=== PATIENT | female | born 1980 | race Caucasian/White ===

== ENCOUNTER → 2018-11-28 08:48 | Outpatient (CLI) | payer OTHER, SELFPAY ==
--- NOTE | 2018-11-28 | DI.MG.S_ITS ---
UNILATERAL LEFT DIGITAL DIAGNOSTIC MAMMOGRAM 3D/2D WITH ADDITIONAL VIEWS WITH AUGMENTATION: 11/28/2018 CLINICAL: Additional evaluation requested from prior study. Comparison is made to exams dated: 08/18/2018 mammogram - [facility] and 11/29/2015 mammogram - [facility]. The tissue of left breast is extremely dense, which lowers the sensitivity of mammography. There are benign appearing calcifications in the left breast. No significant masses, calcifications, or other findings are seen in the breast. Previously noted MLO view asymmetry is not appreciated on today's study and may have been related to physiologic changes of recent preganancy and early lactational changes. IMPRESSION: There is no abnormality seen in the left breast to correspond with the mammography finding which likely represented normal fibroglandular tissue. Recommend clinical follow up for development of any symptoms or palpable concerns. There is no mammographic evidence of malignancy. A 2 year screening mammogram is recommended (age 40). This exam was interpreted at Station ID: [id number]. NOTE: For mammograms, a report in lay terms will be sent to the patient. Approximately 15% of breast malignancies will not be visualized mammographically. In the management of a palpable breast mass, a negative mammogram must not discourage biopsy of a clinically suspicious lesion. Electronically Signed By: Christofer Perry M.D. aty/:11/28/2018 09:58:54 letter sent: Normal Exam ACR BI-RADS Category 2: Benign Finding(s) 3342F
== END ==
PROVIDERS: Visit Provider Nurse Practitioner Family
DX: R92.8 Other abnormal and inconclusive findings on diagnostic imaging of breast (principal)
CPT/HCPCS: 77065; G0279

== ENCOUNTER → 2019-10-26 14:30 | Outpatient (CLI) | payer OTHER, MEDICAID, SELFPAY ==
[2019-10-26 15:07] LABS: Add Manual Diff / Slide Review NO; Basophils Absolute Auto 0 /uL (0-100); Basophils Percent Auto 0.5 % (0-2); Eosinophils Absolute Auto 400 /uL (0-450); Eosinophils Percent Auto 7.5 % (2-4); Hematocrit 37.7 % (36-46); Hemoglobin 12.4 g/dL (12.0-16.0); Lymphocytes Absolute Auto 1300 /uL (1100-4500); Lymphocytes Percent Auto 21.4 % (25-40); Mean Corpuscular Hemoglobin 29.4 PG (26-34); Mean Corpuscular Volume 88.9 fL (80-100); Monocytes Absolute Auto 500 /uL (0-900); Monocytes Percent Auto 8.2 % (3-14); Neutrophils Absolute Auto 3700 /uL (1500-7000); Neutrophils Percent Auto 62.4 % (50-75); Platelet Count 183 X10^3/uL (150-400); Red Blood Cell Count 4.24 X10^6/uL (4.0-5.2); Red Cell Distribution Width 13.1 % (11.6-14.8); White Blood Cell Count 5.9 X10^3/uL (4.5-11.0)
[2019-10-26 15:11] LABS: Appearance Urine UA CLEAR; Bilirubin Urine UA NEGATIVE (NEGATIVE); Color Urine UA YELLOW; Glucose Urine UA NEGATIVE (Negative); Ketones Urine UA TRACE (NEGATIVE); Leukocyte Esterase Urine UA NEGATIVE (NEGATIVE); Nitrite Urine UA NEGATIVE (Negative); Occult Blood Urine UA TRACE-LYSED (Negative); Protein Urine UA NEGATIVE (Negative); Specific Gravity Urine UA >=1.030 (1.000-1.035); Urobilinogen Urine UA 0.2 E.U./dL (0.2)
[2019-10-26 15:16] LABS: pH Urine UA 5.5 (4.5-8.0)
[2019-10-26 16:05] LABS: Free T4, Direct Thyroxine 1.05 ng/dL (0.78-2.19)
[2019-10-26 16:19] LABS: Thyroid Stimulating Hormone 0.891 uIU/mL (0.47-4.68)
[2019-10-26 16:49] LABS: HIV 1 & 2 Ab/Ag 4th Gen Combo NEGATIVE (NEGATIVE); Hepatitis B Surface Antigen NEGATIVE s/c (NEGATIVE)
[2019-10-27 05:11] LABS: RPR Screen Non Reactive (Non Reactive)
[2019-10-27 06:36] LABS: Thyroid Peroxidase Antibodies 294 IU/mL (0-34)
[2019-10-27 08:34] LABS: Varicella IgG Antibody 2322 index (Immune >165)
== END ==
PROVIDERS: PCP Specialist; Referring Provider Specialist; Visit Provider Specialist
DX: Z34.81 Encounter for supervision of other normal pregnancy, first trimester (principal); E06.3 Autoimmune thyroiditis
CPT/HCPCS: 36415; 80055; 81003; 84439; 84443; 86376; 86787; 86850; 86900; 86901; 87086; 87389

== ENCOUNTER → 2019-12-01 16:12 | Outpatient (CLI) | payer OTHER, MEDICAID, SELFPAY | PROVIDERS: PCP Specialist; Referring Provider Specialist; Visit Provider Specialist | DX: O09.521 Supervision of elderly multigravida, first trimester (principal); Z3A.12 12 weeks gestation of pregnancy | CPT/HCPCS: 36415; 81420 ==

== ENCOUNTER → 2019-12-21 10:51 | Outpatient (CLI) | payer OTHER, MEDICAID, SELFPAY ==
[2019-12-21 13:14] LABS: Free T4, Direct Thyroxine 0.99 ng/dL (0.78-2.19)
[2019-12-21 13:28] LABS: Thyroid Stimulating Hormone 0.996 uIU/mL (0.47-4.68)
== END ==
PROVIDERS: PCP Specialist; Referring Provider Specialist; Visit Provider Specialist
DX: E06.3 Autoimmune thyroiditis (principal); Z34.90 Encounter for supervision of normal pregnancy, unspecified, unspecified trimester
CPT/HCPCS: 36415; 84439; 84443

== ENCOUNTER → 2020-01-22 10:42 | Outpatient (CLI) | payer OTHER, MEDICAID, SELFPAY ==
[2020-01-24 20:36] LABS: AFP Value 85.9 ng/mL (.); Gest Age on Col Date 19.1 weeks (.); Gestational Age Ultrasound (.); Insulin Dep Diabetes No (.); OSBR Risk 1IN 2270 (.); Results Report (.); Test Results *Screen Negative* (.)
== END ==
PROVIDERS: Referring Provider Specialist; Visit Provider Specialist
DX: Z34.82 Encounter for supervision of other normal pregnancy, second trimester (principal); Z3A.19 19 weeks gestation of pregnancy
CPT/HCPCS: 36415; 82105

== ENCOUNTER → 2020-01-24 15:17 | Outpatient (CLI) | payer OTHER, MEDICAID, SELFPAY ==
--- NOTE | 2020-01-24 15:18 | DI.US.S_ITS ---
PROCEDURE: US OB >= 14 WEEKS FETUS INDICATIONS: 20 week anatomy scan OUTSIDE/PRIOR DATING DATA: Last menstrual period (LMP): 09/06/19. LMP-based estimated date of delivery (MIMI): 06/12/20 . First dating scan (date and location): 10/26/19 . Estimated date of delivery (MIMI) from first dating scan: 06/16/20 . TECHNIQUE: Real-time scanning was performed of the fetus, with image documentation and biometric measurements. Endovaginal scanning: Not needed COMPARISON: [facility], , OB >= 14 WEEKS FETUS, 11/22/2019, 16:16. FINDINGS: General: A single living intrauterine gestation is present. Presentation: Transverse, head maternal left. Placenta: Placental position is posterior , without previa. Amniotic fluid index: 15.6 cm, normal range is 5-24 cm. heart rate: 165 beats per minute. Maternal cervical canal: 4.0 cm long. Normal lower limit is 2.5 cm. biometrics: Biparietal diameter: 4.3 cm, 19 weeks 0 days Head circumference: 16.6 cm, 19 weeks 2 days Abdominal circumference: 14.1 cm, 19 weeks 3 days Femur length: 3.1 cm, 19 weeks 3 days Estimated gestational age from initial scan: 19 weeks 3 days Composite gestational age from present scan: 19 weeks 2 days Estimated weight and percentile: 292 g, 45th percentile Measurement variability for biometric dating: +/- 7 days from 14 weeks to 15 weeks 6 days gestation, +/- 10 days from 16 weeks to 21 weeks 6 days gestation, +/- 2 weeks from 22 weeks to 27 weeks 6 days gestation, +/- 3 weeks for 28 weeks gestation or later. weight reference: 4500 g or EFW >90/95% is considered macrosomia or large for gestational age. EFW <10% is small for gestational age. EFW 5% or less is considered intra-uterine growth restriction. Anatomic survey: Neuro: Ventricles are non-dilated at less than 10 mm. Cisterna magna is normal at 3-11 mm. Cerebellum is normal in size and morphology. Nuchal skin fold: Normal at less than 6 mm between 14-21 weeks gestational age. Face: Nose and lips, facial profile are normal. Spine: No evidence for spina bifida. Heart: 4-chambered heart is present, with normal ventricular outflow tracts. Diaphragm: Diaphragm is intact. Stomach: Left-sided stomach is present. Kidneys: No hydronephrosis. Normal is less than 5 mm in 2nd trimester, less than 7 mm in 3rd trimester. Cord: 3-vessel cord has orthotopic insertion. Bladder: Normal in size. Extremities: All 4 extremities identified. IMPRESSION: Appropriate interval growth, no anomaly seen. Placental tip is above 2.0 cm from the internal os of the cervical canal and therefore is in normal position. Dictated by: Bishop Rick M.D. on 01/26/2020 at 9:26 Approved by: Bishop Rick M.D. on 01/26/2020 at 9:41
== END ==
PROVIDERS: Referring Provider Specialist; Visit Provider Specialist
DX: Z34.82 Encounter for supervision of other normal pregnancy, second trimester (principal); Z3A.19 19 weeks gestation of pregnancy
CPT/HCPCS: 76811

== ENCOUNTER → 2020-03-04 10:14 | Outpatient (CLI) | payer OTHER, MEDICAID, SELFPAY ==
[2020-03-04 13:14] LABS: Hematocrit 32.6 % (36-46)
[2020-03-04 15:15] LABS: GTT (PREG) 1 Hour PP 50gm Dose 139 mg/dL (76-139)
[2020-03-04 15:48] LABS: Thyroid Stimulating Hormone 1.06 uIU/mL (0.47-4.68)
== END ==
PROVIDERS: Referring Provider Specialist; Visit Provider Specialist
DX: Z34.82 Encounter for supervision of other normal pregnancy, second trimester (principal); E03.9 Hypothyroidism, unspecified; Z3A.25 25 weeks gestation of pregnancy
CPT/HCPCS: 36415; 82950; 84439; 84443; 85014; 85018

== ENCOUNTER → 2020-05-06 09:13 | Outpatient (CLI) | payer OTHER, MEDICAID, SELFPAY ==
[2020-05-06 10:43] LABS: Free T4, Direct Thyroxine 0.83 ng/dL (0.78-2.19)
[2020-05-06 10:57] LABS: Thyroid Stimulating Hormone 1.38 uIU/mL (0.47-4.68)
== END ==
PROVIDERS: Referring Provider Obstetrics & Gynecology; Visit Provider Obstetrics & Gynecology
DX: E06.3 Autoimmune thyroiditis (principal)
CPT/HCPCS: 36415; 84439; 84443

== ENCOUNTER → 2020-05-20 09:58 | Outpatient (CLI) | payer OTHER, MEDICAID, SELFPAY ==
[2020-05-21 10:48] LABS: Strep Grp B PCR NEG for Grp B Strep
[2020-05-21 10:57] LABS: Bile Acids 3.4 umol/L (0.0-10.0)
== END ==
PROVIDERS: Referring Provider Obstetrics & Gynecology; Visit Provider Obstetrics & Gynecology
DX: O09.523 Supervision of elderly multigravida, third trimester (principal); E06.3 Autoimmune thyroiditis; L29.9 Pruritus, unspecified; M62.08 Separation of muscle (nontraumatic), other site; O34.219 Maternal care for unspecified type scar from previous cesarean delivery; O99.719 Diseases of the skin and subcutaneous tissue complicating pregnancy, unspecified trimester; Z3A.36 36 weeks gestation of pregnancy
CPT/HCPCS: 36415; 82239; 87653

== ENCOUNTER 2020-06-03 09:59 | Outpatient (CLI) | payer OTHER, MEDICAID, SELFPAY | END 2020-06-03 11:10 | disposition home or self-care (01) | LOC: LABOR 10:44 → OB 06-04 07:27 | PROVIDERS: Referring Provider Obstetrics & Gynecology; Visit Provider Obstetrics & Gynecology | DX: O09.523 Supervision of elderly multigravida, third trimester (principal); Z3A.38 38 weeks gestation of pregnancy | CPT/HCPCS: 59025; G0378; G0379 ==

== ENCOUNTER → 2020-06-11 14:17 | Outpatient (CLI) | payer OTHER, MEDICAID, SELFPAY ==
[2020-06-11 14:51] LABS: COVID19 -Nasal RAPID Negative (Negative)
== END ==
PROVIDERS: Visit Provider Obstetrics & Gynecology
DX: Z01.812 Encounter for preprocedural laboratory examination (principal); Z20.822 Contact with and (suspected) exposure to COVID-19
CPT/HCPCS: 87635

== ENCOUNTER 2020-06-13 06:00 | Inpatient (IN) | payer OTHER, MEDICAID, SELFPAY ==
[2020-06-13 06:45] VITALS: BP 103/66
[2020-06-13 07:32] LABS: Add Manual Diff / Slide Review NO; Basophils Absolute Auto 0 /uL (0-100); Basophils Percent Auto 0.3 % (0-2); Eosinophils Absolute Auto 300 /uL (0-450); Eosinophils Percent Auto 4.2 % (2-4); Hematocrit 35.8 % (36-46); Hemoglobin 12.4 g/dL (12.0-16.0); Lymphocytes Absolute Auto 1300 /uL (1100-4500); Lymphocytes Percent Auto 20.3 % (25-40); Mean Corpuscular HGB Conc 34.5 % (30-36); Mean Corpuscular Hemoglobin 30.8 PG (26-34); Mean Corpuscular Volume 89.1 fL (80-100); Monocytes Absolute Auto 600 /uL (0-900); Monocytes Percent Auto 9.9 % (3-14); Neutrophils Absolute Auto 4200 /uL (1500-7000); Neutrophils Percent Auto 65.3 % (50-75); Platelet Count 172 X10^3/uL (150-400); Red Blood Cell Count 4.02 X10^6/uL (4.0-5.2); Red Cell Distribution Width 13.9 % (11.6-14.8); White Blood Cell Count 6.4 X10^3/uL (4.5-11.0)
--- NOTE | 2020-06-13 08:42 | PM.HP.1 ---
History of Present Illness History of Present Illness Date Patient Seen: 06/13/20 Time Patient Seen: 08:42 Chief complaint: INPT Narrative: Patient is a 39-year-old 3 para 1 at 40-,1/7 weeks gestation for a scheduled repeat low-transverse section due to a previous section. The has been uncomplicated. 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 Grandfather Accident Grandmother CVA (cerebral vascular accident) Grandfather CVA (cerebral vascular accident) Hypertension Brother Hypothyroid Social History: household members spouse,children lives independently Yes Tobacco & Substance use: Smoking Status Former smoker alcohol intake former Meds Home Medications and Allergies Home Medications Medication Instructions Recorded Confirmed Type prenat.vits,janet,udh-uhud-pwrru 1 tab PO DAILY 10/24/19 06/13/20 History levothyroxine 50 mcg tablet 50 mcg PO DAILY #30 tab 05/06/20 06/13/20 Rx Allergies Allergy/AdvReac Type Severity Reaction Status Date / Time penicillin G Allergy Mild Rash Verified 06/11/20 14:19 Exam Vital Signs (past 8 hours): - 06/13/20 06:45 Blood Pressure 103/66 Narrative Exam Narrative: Generally: Patient is sitting up in bed, no acute distress Lungs: Clear to auscultation bilaterally Cardiovascular: Regular rate and rhythm Fundal height: 39 cm Abdomen: Well-healed Pfannenstiel scar Extremities: no edema Objective Labs Result Diagrams: 06/13/20 06:30 Labs: Laboratory Results - last 24 hr 06/13/20 06/13/20 06:30 06:30 WBC 6.4 RBC 4.02 Hgb 12.4 Hct 35.8 L MCV 89.1 MCH 30.8 MCHC 34.5 RDW 13.9 Plt Count 172 Neut % (Auto) 65.3 Lymph % (Auto) 20.3 L [place] % (Auto) 9.9 Eos % (Auto) 4.2 H Baso % (Auto) 0.3 Neut # (Auto) 4200 Lymph # (Auto) 1300 [place] # (Auto) 600 Eos # (Auto) 300 Baso # (Auto) 0 Blood Type B Positive Antibody Screen Negative Assessment & Plan Assessment & Plan narrative: Assessment: 39-year-old 3 para 1 with a previous section . Plan: Repeat low-transverse section. Preoperative exam and PAR-Q held in the office. COVID-19 COVID-19 status: Negative Result date/Date tested (Pos, Neg/Pending): 06/12/20 Time Spent With Patient Time with patient: 15-24 minutes
--- NOTE | 2020-06-13 08:45 | PM.PREOP ---
Pre-operative Note COVID-19 COVID-19 status: Negative Result date/Date tested (Pos, Neg/Pending): 06/12/20 Interval Note History & Physical reviewed/Exam performed by Physician: Yes Changes to H&P: No H&P completed within 30 days and has changed as indicated here:: 06/13/20
[2020-06-13] MEDS: CEFAZOLIN 2 GM/100 ML FROZ.PIGGY IV (09:05)
--- NOTE | 2020-06-13 09:26 | SUR.OPER ---
live female at 0917
--- NOTE | 2020-06-13 09:31 | SUR.OPER ---
Supine on Padded OR bed, head on pillow, safety belt at thigh, arms secured on padded arm boards at <90 degrees abduction. Bump under right buttock. Legs uncrossed with pillow under knees, gel pad to heels, tape over blanket to lower legs.
[2020-06-13 10:13] VITALS: BP 102/48; PULSE 78; RESP 16; TEMP 36.7; O2SAT 99
[2020-06-13 10:18] VITALS: BP 110/58; PULSE 75; RESP 14; O2SAT 99
[2020-06-13 10:23] VITALS: BP 109/52; PULSE 70; RESP 14; O2SAT 100
[2020-06-13 10:28] VITALS: BP 115/52; PULSE 71; RESP 100; TEMP 36.1; O2SAT 14
--- NOTE | 2020-06-13 11:32 | P.OP_ITS ---
Operative Date/Time/Diagnoses Date of procedure: 06/13/20 Time of procedure: 11:00 Pre-op diagnosis: Thirty-nine weeks gestation Previous section Desires cord blood collection Post-op diagnosis: same Procedure & Clinicians Procedure: Repeat low-transverse section Cord blood collection Same procedure as scheduled: Yes Indications: Thirty-nine weeks gestation Previous section Desires cord blood collection Surgeon: Mattie Thomas Yes if Unassisted: No Retail Administrative Assistant: Yamini Middleton Reason for Retail Administrative Assistant: The surgical physician assistant was necessary for retraction, cutting of suture, and assistance with delivery of the baby. Anesthesia Type: Spinal (With Duramorph) Operative Notes Findings: Live female infant in the direct occiput posterior presentation Normal tubes and ovaries Normal uterus Closure Type: primary Specimen(s): cord blood and other (Cord blood collection for banking, piece of cord for banking) Intraoperative meds administered: Acetaminophen, Duramorph, Ketorolac and Pitocin Applied: Catheter Estimated Blood Loss (mL): 500 Blood products transfused: none Procedure in detail: The patient was taken to the operating room where she was placed in the seated position. Spinal anesthesia with Duramorph was administered. The patient was then placed in the dorsal supine position with a leftward tilt. She was prepped and draped in the usual sterile fashion. A timeout was performed. After spinal analgesia was found to be adequate, a Pfannenstiel skin incision was made through the previous incision and carried through to the underlying layer fascia. The fascia was nicked in the midline, and the incision extended bilaterally with the Chang scissors. The superior aspect of the fascial incision was grasped with a Ahmet clamps, elevated, and the underlying rectus muscles dissected off sharply and bluntly. Attention was then turned to the inferior aspect of this incision which in a similar fashion was grasped with a Lando clamps, elevated, and the underlying rectus muscles dissected off sharply and bluntly. The rectus muscles were in the midline. The peritoneum was identified, grasped between 2 hemostats, and entered sharply with the Metzenbaum scissors. This incision was extended superiorly and inferiorly with good visualization of the bladder. The bladder blade was inserted. The vesicouterine peritoneum was identified, grasped with the pickup, and entered sharply with the Metzenbaum scissors. This incision was extended bilaterally, and the bladder flap was created digitally. The bladder blade was reinserted. The lower uterine segment was incised in a transverse fashion with the scalpel. Upon entering the amniotic sac there was moderate amount of clear amniotic fluid. The infant's head was delivered with vacuum assistance. The nose and mouth were suctioned with bulb suction. The remainder of the body delivered without difficulty. The cord was double clamped and cut. The was handed off to waiting RN and RT. The cord was cleaned x3 with Betadine. The needle attached to the blood collection bag was placed at the lower edge of the umbilical cord into a vein. Over the course of 5 minutes, 250 cc of blood were collected. A 6 in piece of cord was cleaned and cut and placed into the collection bottle. The placenta was delivered manually. The uterus was cleared of all clots and debris. The uterine incision was repaired with #1 chromic in a running interlocking fashion, and a second layer the same suture was used for an imbricating layer. Hemostasis was achieved. The tubes and ovaries were examined and were found to be normal. The gutters were cleared of all clots and debris. The bladder flap was reapproximated using 2-0 Vicryl in a running fashion. The parietal peritoneum was closed using 2-0 Vicryl in a running fashion. The fascia was reapproximated using 0 Vicryl in a running fashion. The subcutaneous layer was copiously irrigated with warm normal saline. 5 simple interrupted sutures of 3-0 Vicryl were placed to reapproximate the subcutaneous layer. The skin was closed with 4-0 Monocryl in a subcuticular fashion. Steri-Strips were placed. An Aquacel dressing was placed. The uterus was expressed of a small amount of old blood. Sponge, lap, and instrument counts were correct x-2. The patient tolerated the procedure well, and was taken to PACU in stable condition. The surgical physician assistant retracted upon entry into the peritoneal cavity. They incised the contralateral fascia. They assisted with retraction with taking down the fascia off of the underlying rectus muscle. They assisted with fundal pressure on delivery of the . They assisted with retraction on the closure and closed the contralateral fascia. Complications: none Baby 1: Infant Gender: Female Presentation: vertex Position: Occiput Posterior Placental Delivery Description: Spontaneous Cord Vessel Description: 3 Vessels score (1 min): 8 score (5 min): 9 weight: 8 lb 14 oz Post-operative Condition: stable Disposition: PACU Aftercare: ICU
[2020-06-13] MEDS: KETOROLAC 30 MG/ML VIAL IV ×2 (15:55→21:52)
[2020-06-13] MEDS: SIMETHICONE 80 MG TABLET PO (16:14)
[2020-06-13] MEDS: OXYCODONE IR 5 MG TABLET PO (20:05)
[2020-06-13] MEDS: ACETAMINOPHEN 325 MG TABLET 650 MG PO (20:05)
[2020-06-13] MEDS: MAG HYDROX/ALUM/SIMETH 30 ML UDC PO (21:52)
[2020-06-14] MEDS: KETOROLAC 30 MG/ML VIAL IV (03:44)
[2020-06-14] MEDS: ACETAMINOPHEN 325 MG TABLET 650 MG PO ×2 (03:45→09:55)
[2020-06-14] MEDS: LEVOTHYROXINE 25 MCG TABLET 50 MCG PO (06:31)
[2020-06-14 06:47] LABS: Hematocrit 32.4 % (36-46); Hemoglobin 11.2 g/dL (12.0-16.0)
[2020-06-14] MEDS: SIMETHICONE 80 MG TABLET PO (09:54)
[2020-06-14] MEDS: DOCUSATE 250 MG CAPSULE PO (09:55)
[2020-06-14] MEDS: PRENATAL VIT,CALC/IRON/FOLIC 1 TABLET 1 TAB PO (09:55)
[2020-06-14] MEDS: IBUPROFEN 600 MG TABLET PO (09:55)
[2020-06-14] MEDS: OXYCODONE IR 5 MG TABLET PO ×2 (09:56→13:42)
[2020-06-14 13:20] VITALS: BP 115/65; PULSE 80; RESP 16; TEMP 37.1
--- NOTE | 2020-06-16 13:21 | P.DS_ITS ---
Discharge Providers Provider Date of admission: 06/13/20 06:00 Discharge Date: 06/14/20 Primary care physician: Doctor Shonda MD Consults: 06/13/20 13:16 Consult to Toll Mechanic Routine Comment: Discharge provider: Mattie Rizvi MD Summary Hospital Course Date Patient Seen: 06/14/20 Time Patient Seen: 07:45 Diagnoses: Estimated gestational age of 39 weeks Previous section Desires cord blood collection Hospital Course: Patient is a 40-year-old 3 para 2 who presented on June 13, 2020 for a scheduled repeat section and cord blood collection. She underwent these procedures without complication. On postop day # 1, was going well, pain was well controlled, patient was ambulating without assistance, she was voiding without the catheter, and tolerated a diet without nausea or vomiting. She is discharged home on postop day # 1. Peripartum Data Infant Delivery Method: Section Laceration Description: None Episiotomy description: None Procedures: Spinal anesthesia with Duramorph Repeat low-transverse section Cord blood collection complications: none [place] 1: Gender: Female Disposition of : home Status at Discharge Cognitive/behavioral status at discharge: oriented Functional status at discharge: independent ambulation Overall status at discharge: patient is progressing back to baseline Time Spent with Patient Time attestation: Total time spent providing and/or coordinating discharge serv ices: Time spent: Less than 30 minutes Objective Labs Result Diagrams: 06/14/20 06:16 Exam Vital Signs (past 8 hours): Oxygen Delivery Method Room Air Oxygen Flow Rate 0 Narrative Exam Narrative: Generally: Patient is sitting up in bed, no acute distress Lungs: Clear to auscultation bilaterally Cardiovascular: Regular rate and rhythm Abdomen: Soft and flat Fundus: Firm at U -1 Incision: Clean dry and intact with Aquacel dressing Extremities: Negative Homans Discharge Plan Discharge Plan Patient Disposition: Home Provider Discharge Comment: Call with fever, chills, redness or drainage around the incision, or bleeding vaginally more than a pad in an hour Tylenol 650 mg every 6 hours Ibuprofen 600 mg every 6 hours Push oral fluids Stool softener as needed Discharge orders & Medications Prescriptions: New oxycodone 5 mg tablet 5 mg PO Q4H PRN (Reason: pain) Qty: 20 RF: 0 Continued prenat.vits,janet,trp-ruar-yyjlp Tablet 1 tab PO DAILY RF: 0 levothyroxine 50 mcg tablet 50 mcg PO DAILY Qty: 30 RF: 2 Follow up/Referrals: Mattie Rizvi MD [Physician] - (Please follow up [facility] Dr. Rizvi for an incision check on June 20 at 4:00pm. In 6 weeks, please follow up with Dr. Rizvi for a post check-up on July 25 at 2:00pm. Please call with any questions. ) Diet/Activity/Treatments Diet: Regular Activity: No heavy lifting Skin/Wound/Dressing Care Report to your healthcare provider any signs of infection, such as:: chills, fever, increased pain, unusual drainage and unusual redness Dressing: Do not removed Visit Report/Discharge Packet Instructions: DI for , DI for Prescription Opioid Use Stand Alone Forms: Discharge: Care Discharge Data Primary Care Provider: Miscellaneous,Doctor
== END 2020-06-14 14:10 | disposition home or self-care (01) | DRG 540 ==
PROVIDERS: Admitting Provider Obstetrics & Gynecology; Referring Provider Obstetrics & Gynecology; Visit Provider Obstetrics & Gynecology
PROC: 10D00Z1 Extraction of Products of Conception, Low, Open Approach (ICD-10-PCS; CPT 59514; principal; 2020-06-13 07:45)
DX: O34.219 Maternal care for unspecified type scar from previous cesarean delivery (principal); Z3A.40 40 weeks gestation of pregnancy; Z37.0 Single live birth; O99.284 Endocrine, nutritional and metabolic diseases complicating childbirth; E06.3 Autoimmune thyroiditis
CPT/HCPCS: 36415; 59050; 59514; 85014; 85018; 85025; 86850; 86900; 86901; J0690; J1885; J2250; J2274; J2590

== ENCOUNTER → 2020-07-25 15:15 | Outpatient (CLI) | payer OTHER, MEDICAID, SELFPAY ==
[2020-07-25 18:42] LABS: Free T4, Direct Thyroxine 0.93 ng/dL (0.78-2.19)
[2020-07-25 18:56] LABS: Thyroid Stimulating Hormone 0.581 uIU/mL (0.47-4.68)
== END ==
PROVIDERS: Referring Provider Obstetrics & Gynecology; Visit Provider Obstetrics & Gynecology
DX: E06.3 Autoimmune thyroiditis (principal)
CPT/HCPCS: 36415; 84439; 84443

== ENCOUNTER → 2020-11-20 09:17 | Outpatient (CLI) | payer OTHER, MEDICAID, SELFPAY ==
[2020-11-20 13:31] LABS: COVID19 -Nasal RAPID Negative (Negative)
== END ==
PROVIDERS: Visit Provider Physician Assistant
DX: Z01.812 Encounter for preprocedural laboratory examination (principal); Z20.822 Contact with and (suspected) exposure to COVID-19
CPT/HCPCS: 87635; C9803

== ENCOUNTER → 2020-12-05 16:15 | Outpatient (CLI) | payer OTHER, MEDICAID, SELFPAY ==
[2020-12-06 14:13] LABS: Free T4, Direct Thyroxine 1.21 ng/dL (0.78-2.19)
[2020-12-06 14:26] LABS: Thyroid Stimulating Hormone 0.983 uIU/mL (0.47-4.68)
== END ==
PROVIDERS: PCP Obstetrics & Gynecology; Referring Provider Obstetrics & Gynecology; Visit Provider Obstetrics & Gynecology
DX: E06.3 Autoimmune thyroiditis (principal)
CPT/HCPCS: 36415; 84439; 84443

== ENCOUNTER 2021-03-23 15:45 | Emergency (ER) | payer OTHER, MEDICAID, SELFPAY ==
[2021-03-23 15:46] VITALS: BP 140/77; PULSE 84; RESP 16; TEMP 36.8; O2SAT 100; BMI 18.2
--- NOTE | 2021-03-23 15:52 | DI.RAD.S_ITS ---
PROCEDURE: XR CHEST 1V INDICATIONS: chest pain TECHNIQUE: One view of the chest was acquired. COMPARISON: None. FINDINGS: Surgical changes and devices: None. Lungs and pleura: Lungs are clear. No pleural effusions or pneumothorax. Mediastinum: Mediastinal contours appear normal. Heart size is normal. Bones and chest wall: No suspicious bony lesions. Overlying soft tissues appear unremarkable. IMPRESSION: No acute cardiopulmonary findings Approved by: Deven Gaston M.D. on 03/23/2021 at 16:12
[2021-03-23 16:04] LABS: Add Manual Diff / Slide Review NO; Basophils Absolute Auto 0 /uL (0-100); Basophils Percent Auto 0.5 % (0-2); Eosinophils Absolute Auto 400 /uL (0-450); Eosinophils Percent Auto 5.5 % (2-4); Hematocrit 38.7 % (36-46); Hemoglobin 13.4 g/dL (12.0-16.0); Lymphocytes Absolute Auto 1800 /uL (1100-4500); Lymphocytes Percent Auto 28.3 % (25-40); Mean Corpuscular HGB Conc 34.7 % (30-36); Mean Corpuscular Hemoglobin 30.6 PG (26-34); Mean Corpuscular Volume 88.3 fL (80-100); Monocytes Absolute Auto 400 /uL (0-900); Monocytes Percent Auto 6.8 % (3-14); Neutrophils Absolute Auto 3800 /uL (1500-7000); Neutrophils Percent Auto 58.9 % (50-75); Platelet Count 200 X10^3/uL (150-400); Red Blood Cell Count 4.39 X10^6/uL (4.0-5.2); Red Cell Distribution Width 13.1 % (11.6-14.8); White Blood Cell Count 6.5 X10^3/uL (4.5-11.0)
[2021-03-23 16:08] LABS: D Dimer < 200 ng/mL (<230)
[2021-03-23 16:09] VITALS: PULSE 71; RESP 21; O2SAT 98
[2021-03-23 16:09] LABS: Alanine Aminotransferase 30 IU/L (<35); Albumin 4.6 g/dL (3.5-5.0); Albumin Globulin Ratio 1.4 (1.0-2.8); Alkaline Phosphatase 77 U/L (38-126); Aspartate Aminotransferase 34 IU/L (14-36); BUN Creatinine Ratio 21.4 (6-22); Bilirubin Total 0.3 mg/dL (0.2-1.3); Blood Urea Nitrogen 12 mg/dL (7-17); Calcium 9.7 mg/dL (8.4-10.2); Carbon Dioxide 25 mmol/L (22-32); Chloride 104 mmol/L (98-107); Estimated Glomerular Filt Rate > 60.0 mL/min (>60); Globulin 3.2 g/dL (1.7-4.1); Glucose 99 mg/dL (70-100); HEMOLYSIS < 15 (0-50); Lipase 148 U/L (23-300); Magnesium 2.2 mg/dL (1.6-2.3); Potassium 3.6 mmol/L (3.4-5.1); Sodium 137 mmol/L (137-145); Total Protein 7.8 g/dL (6.3-8.2)
[2021-03-23 16:20] LABS: Troponin I < 0.012 ng/mL (0.01-0.034)
[2021-03-23 16:24] LABS: COVID19 -Nasal RAPID Negative (Negative)
--- NOTE | 2021-03-23 16:24 | ED.CHESTPAIN ---
HPI - Chest Pain General Chief Complaint: Chest Pain Stated Complaint: SOB, Chest Pain Time Seen by Provider: 03/23/21 15:51 Source: patient and EMS Mode of arrival: EMS Limitations: no limitations History of Present Illness HPI narrative: 40-year-old woman who is 9 months with no significant medical history presents with 2 days of intermittent seemingly exertional dyspnea chest tightness centered in the left chest. Today when getting up to walk across the room she had significant tightness in her left neck associated with some dyspnea and a sensation that her airway was closing off. She describes no diaphoresis, palpitations, lower extremity edema. She has had no recent fever cough or chills. She has had no abdominal pain vomiting or diarrhea. She does note that her father had an HI at the age of 38 (non fatal). She also notes that she has lost over 20 lb in the last 3 months with no significant effort on her part. She has been trying to establish with primary care provider to further evaluate this. Related Data Home Medications Medication Instructions Recorded Confirmed prenat.vits,janet,[id number] 1 tab PO DAILY 10/24/19 07/25/20 Previous Rx's Medication Instructions Recorded levothyroxine 50 mcg tablet See Rx Instructions .ROUTE 09/18/20 .COMPLEX #30 tab Allergies Allergy/AdvReac Type Severity Reaction Status Date / Time penicillin G Allergy Mild Rash Verified 07/25/20 14:28 Penicillins Allergy Unverified 03/23/21 16:07 Review of Systems Review of Systems Narrative: Remainder of complete review of systems is otherwise unremarkable except for that included in the HPI. 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 Grandfather Accident Grandmother CVA (cerebral vascular accident) Grandfather CVA (cerebral vascular accident) Hypertension Brother Hypothyroid Social History marital status: number of children: 1 household members: spouse and children lives independently: Yes pets and animals: No occupational status: employed (Self Employed - many losses with Covid : discussed [facility] support) current occupational exposures/hazards: No Previous occupational history: avionics electrical engineer special marce needs: No Smoking Status: Former smoker Tobacco: How many years used: 4 second hand exposure: No alcohol intake: former (pre- : occasional ) substance use type: does not use Smoking Status: Never smoker alcohol intake frequency: a few times a month Substance Use Type: does not use Exam Initial Vital Signs Initial Vital Signs: Vital Signs Temperature 98.3 F 03/23/21 15:46 Pulse Rate 84 03/23/21 15:46 Respiratory Rate 16 03/23/21 15:46 Blood Pressure 140/77 03/23/21 15:46 Pulse Oximetry 100 03/23/21 15:46 General: Thin but Healthy appearing, in no acute distress. Able to give a complete and coherent history. Well-nourished well-developed HEENT: Moist mucous membranes, normal sclera with reactive pupils, Neck: No JVD, supple, no thyroid masses or fullness. No thyroid bruits. Respiratory: Lungs are clear to auscultation, no wheezing no rales no rhonchi. Full and symmetrical air movement Cardiac: Regular rate and rhythm no murmurs no bruits Abdomen: Soft, nontender, good bowel tones, no flank pain Skin: Warm and dry, no rashes Neurologic: Grossly neurologically intact with no obvious asymmetries or abnormalities Extremities: No trauma, well perfused Psych: Cooperative, appropriate insight and affect Course Orders Ordered: ED Orders 03/23/21 15:18 COVID19 -Nasal swab/Pre-Proc Stat Complete Blood Count AUTO DIFF Stat Comprehensive Metabolic Panel Stat D Dimer Stat Lipase Stat Magnesium Stat TSH [Thyroid Stimulating Hormone] Stat Troponin I Stat 03/23/21 15:52 XR chest 1V Stat Vital Signs Vital signs: Vital Signs - 8 hr 03/23/21 15:46 Temperature 98.3 F Pulse Rate 84 Respiratory Rate 16 Blood Pressure 140/77 Pulse Oximetry 100 MDM - Chest Pain Lab Data Result diagrams: 03/23/21 15:18 03/23/21 15:18 Labs: Lab Results 01/30/22 01/30/22 01/30/22 Range/Units 15:18 15:18 15:18 WBC 6.5 (4.5-11.0) X10^3/uL RBC 4.39 (4.0-5.2) X10^6/uL Hgb 13.4 (12.0-16.0) g/dL Hct 38.7 (36-46) % MCV 88.3 (80-100) fL MCH 30.6 (26-34) PG MCHC 34.7 (30-36) % RDW 13.1 (11.6-14.8) % Plt Count 200 (150-400) X10^3/uL Neut % (Auto) 58.9 (50-75) % Lymph % (Auto) 28.3 (25-40) % [place] % (Auto) 6.8 (3-14) % Eos % (Auto) 5.5 H (2-4) % Baso % (Auto) 0.5 (0-2) % Neut # (Auto) 3800 (9241-8615) /uL Lymph # (Auto) 1800 (4325-1976) /uL [place] # (Auto) 400 (0-900) /uL Eos # (Auto) 400 (0-450) /uL Baso # (Auto) 0 (0-100) /uL D-Dimer < 200 (<230) ng/mL Sodium 137 (137-145) mmol/L Potassium 3.6 (3.4-5.1) mmol/L Chloride 104 (98-107) mmol/L Carbon Dioxide 25 (22-32) mmol/L BUN 12 (7-17) mg/dL Creatinine 0.56 (0.52-1.04) mg/dL Estimated GFR > 60.0 (>60) mL/min BUN/Creatinine Ratio 21.4 (6-22) Glucose 99 (70-100) mg/dL Calcium 9.7 (8.4-10.2) mg/dL Magnesium 2.2 (1.6-2.3) mg/dL Total Bilirubin 0.3 (0.2-1.3) mg/dL AST 34 (14-36) IU/L ALT 30 (<35) IU/L Alkaline Phosphatase 77 (38-126) U/L Troponin I < 0.012 (0.01-0.034) ng/mL Total Protein 7.8 (6.3-8.2) g/dL Albumin 4.6 (3.5-5.0) g/dL Globulin 3.2 (1.7-4.1) g/dL Albumin/Globulin Ratio 1.4 (1.0-2.8) Lipase 148 (23-300) U/L TSH (0.47-4.68) uIU/mL SARS-CoV-2 (PCR) (Negative) 03/23/21 03/23/21 Range/Units 15:18 15:18 WBC (4.5-11.0) X10^3/uL RBC (4.0-5.2) X10^6/uL Hgb (12.0-16.0) g/dL Hct (36-46) % MCV (80-100) fL MCH (26-34) PG MCHC (30-36) % RDW (11.6-14.8) % Plt Count (150-400) X10^3/uL Neut % (Auto) (50-75) % Lymph % (Auto) (25-40) % [place] % (Auto) (3-14) % Eos % (Auto) (2-4) % Baso % (Auto) (0-2) % Neut # (Auto) (0833-6201) /uL Lymph # (Auto) (7704-7470) /uL [place] # (Auto) (0-900) /uL Eos # (Auto) (0-450) /uL Baso # (Auto) (0-100) /uL D-Dimer (<230) ng/mL Sodium (137-145) mmol/L Potassium (3.4-5.1) mmol/L Chloride (98-107) mmol/L Carbon Dioxide (22-32) mmol/L BUN (7-17) mg/dL Creatinine (0.52-1.04) mg/dL Estimated GFR (>60) mL/min BUN/Creatinine Ratio (6-22) Glucose (70-100) mg/dL Calcium (8.4-10.2) mg/dL Magnesium (1.6-2.3) mg/dL Total Bilirubin (0.2-1.3) mg/dL AST (14-36) IU/L ALT (<35) IU/L Alkaline Phosphatase (38-126) U/L Troponin I (0.01-0.034) ng/mL Total Protein (6.3-8.2) g/dL Albumin (3.5-5.0) g/dL Globulin (1.7-4.1) g/dL Albumin/Globulin Ratio (1.0-2.8) Lipase (23-300) U/L TSH 1.49 (0.47-4.68) uIU/mL SARS-CoV-2 (PCR) Negative (Negative) Imaging Data Chest x-ray: My Impression: No acute changes No consolidative findings, no pneumothorax ECG Data Interpretation: Sinus rhythm at a rate of 69 Normal intervals normal axis No acute ischemic changes MDM Narrative Medical decision making narrative: Otherwise healthy 40-year-old woman with exertional dyspnea over the last 2 days and today with some left-sided neck tightness. Lab work is reassuring with no evidence of acute coronary syndrome. EKG is reassuring and chest x-ray shows no acute pathology. She reports that she has lost 20 lb in the last couple of months currently on thyroid and 9 months . TSH is reassuring. Remainder of blood work does not suggest acute changes nor need for hospital admission. She is looking for a primary care provider. Dr. Zepeda is on-call this weekend and might be an excellent match. Will ask her to call to see if there is space available for an ER follow-up. At this point she is safe for home discharge. Questions are answered Discharge Plan Departure Patient Disposition: Home Clinical Impression: Dyspnea, Rapid weight loss Instructions: DI for Atypical Chest Pain Activity Restrictions/Additional Instructions: Thank you for coming in today There is no evidence of heart attack or acute coronary syndrome today.? Your lung exam is normal, there was no evidence of a collapsed lung and you do not have COVID today. Your thyroid level is normal. I do not have a full explanation for your rapid weight loss over the past few months however I would recommend that we find you a primary care physician so that issue can be further evaluated. Dr. Zepeda is on-call this weekend and might be a perfect match. Please call [phone] to schedule an ER follow up visit for shortness of breath and significant weight loss post . If you feel that you are getting worse, please return to the ER. Prescriptions: No Action prenat.vits,janet,[id number] Tablet 1 tab PO DAILY 0RF levothyroxine 50 mcg tablet See Rx Instructions .ROUTE .COMPLEX Qty: 30 6RF Dose Instruction: TAKE ONE TABLET BY MOUTH ONE TIME DAILY FOR THYROID REPLACEMENT Rx Instructions: TAKE ONE TABLET BY MOUTH ONE TIME DAILY FOR THYROID REPLACEMENT Referrals: Mattie Rizvi MD [Primary Care Provider] -
[2021-03-23 16:30] VITALS: BP 102/71; PULSE 69; RESP 17; O2SAT 98
[2021-03-23 17:30] LABS: Thyroid Stimulating Hormone 1.49 uIU/mL (0.47-4.68)
== END 2021-03-23 17:58 | disposition home or self-care (01) ==
PROVIDERS: Emergency Provider Emergency Medicine; PCP Obstetrics & Gynecology
DX: R06.00 Dyspnea, unspecified (principal); R63.4 Abnormal weight loss; Z87.891 Personal history of nicotine dependence; Z20.822 Contact with and (suspected) exposure to COVID-19
CPT/HCPCS: 36415; 71045; 80053; 83690; 83735; 84443; 84484; 85025; 85379; 87635; 93005; 99284; C9803

== ENCOUNTER → 2021-03-27 16:42 | Outpatient (CLI) | payer OTHER, MEDICAID, SELFPAY ==
[2021-03-27 17:12] LABS: Creatine Kinase 35 U/L (30-135)
[2021-03-27 17:25] LABS: Troponin I < 0.012 ng/mL (0.01-0.034)
== END ==
PROVIDERS: PCP Obstetrics & Gynecology; Referring Provider Physician Assistant; Visit Provider Physician Assistant
DX: R06.00 Dyspnea, unspecified (principal)
CPT/HCPCS: 36415; 82550; 84484

== ENCOUNTER → 2021-05-14 14:41 | Outpatient (CLI) | payer OTHER, MEDICAID, SELFPAY ==
--- NOTE | 2021-05-14 14:43 | DI.US.S_ITS ---
PROCEDURE: US THYROID INDICATIONS: NECK TIGHTNESS, HX HASHIMOTOS. TECHNIQUE: Real-time scanning was performed of the thyroid gland, with image documentation. COMPARISON: None. FINDINGS: Right: Thyroid lobe measures 5.0 x 1.3 x 1.4 cm, and is heterogeneous in echotexture. Left: Thyroid lobe measures 5.3 x 1.3 x 1.3 cm, and is heterogeneous in echotexture. Isthmus: 2.6 mm thick. IMPRESSION: Heterogeneous appearance of the thyroid which is mildly enlarged. No focal nodules are identified. Dictated by: Madyson Horton M.D. on 05/14/2021 at 15:46 Approved by: Madyson Horton M.D. on 05/14/2021 at 15:47
== END ==
PROVIDERS: PCP Obstetrics & Gynecology; Referring Provider Physician Assistant; Visit Provider Physician Assistant
DX: E04.9 Nontoxic goiter, unspecified (principal); R29.898 Other symptoms and signs involving the musculoskeletal system
CPT/HCPCS: 76536

== ENCOUNTER → 2021-05-22 10:32 | Outpatient (CLI) | payer OTHER, MEDICAID, SELFPAY ==
[2021-05-22 11:31] LABS: Add Manual Diff / Slide Review NO; Basophils Absolute Auto 0 /uL (0-100); Basophils Percent Auto 0.6 % (0-2); Eosinophils Absolute Auto 300 /uL (0-450); Eosinophils Percent Auto 6.4 % (2-4); Hematocrit 39.8 % (36-46); Hemoglobin 13.4 g/dL (12.0-16.0); Lymphocytes Absolute Auto 1400 /uL (1100-4500); Lymphocytes Percent Auto 28.4 % (25-40); Mean Corpuscular HGB Conc 33.7 % (30-36); Mean Corpuscular Hemoglobin 30.2 PG (26-34); Mean Corpuscular Volume 89.8 fL (80-100); Monocytes Absolute Auto 400 /uL (0-900); Monocytes Percent Auto 7.6 % (3-14); Neutrophils Absolute Auto 2800 /uL (1500-7000); Platelet Count 229 X10^3/uL (150-400); Red Blood Cell Count 4.43 X10^6/uL (4.0-5.2)
[2021-05-22 12:53] LABS: Alanine Aminotransferase 32 IU/L (<35); Albumin 4.9 g/dL (3.5-5.0); Albumin Globulin Ratio 1.9 (1.0-2.8); Alkaline Phosphatase 67 U/L (38-126); Aspartate Aminotransferase 38 IU/L (14-36); BUN Creatinine Ratio 16.7 (6-22); Bilirubin Total 0.5 mg/dL (0.2-1.3); Blood Urea Nitrogen 11 mg/dL (7-17); Calcium 9.9 mg/dL (8.4-10.2); Carbon Dioxide 27 mmol/L (22-32); Chloride 102 mmol/L (98-107); Estimated Glomerular Filt Rate > 60.0 mL/min (>60); Globulin 2.6 g/dL (1.7-4.1); Glucose 106 mg/dL (70-100); HEMOLYSIS < 15 (0-50); Potassium 4.2 mmol/L (3.4-5.1); Sodium 137 mmol/L (137-145); Total Protein 7.5 g/dL (6.3-8.2)
[2021-05-22 13:12] LABS: Free T4, Direct Thyroxine 1.38 ng/dL (0.78-2.19)
[2021-05-23 06:42] LABS: Thyroid Peroxidase Antibodies 523 IU/mL (0-34); Triiodothyronine T3 Total 84 ng/dL (71-180)
== END ==
PROVIDERS: PCP Physician Assistant; Referring Provider Physician Assistant; Visit Provider Physician Assistant
DX: R07.0 Pain in throat (principal); E03.9 Hypothyroidism, unspecified
CPT/HCPCS: 36415; 80053; 84439; 84443; 84480; 85025; 86376

== ENCOUNTER → 2021-08-05 08:17 | Outpatient (CLI) | payer OTHER, MEDICAID, SELFPAY ==
--- NOTE | 2021-08-05 | DI.MG.S_ITS ---
BILATERAL DIGITAL SCREENING MAMMOGRAM 3D/2D WITH CAD WITH AUGMENTATION: 08/05/2021 CLINICAL: Routine screening. Comparison is made to exams dated: 11/28/2018 mammogram - [facility], 08/18/2018 mammogram - [facility], and 11/29/2015 mammogram - [facility]. The tissue of both breasts is extremely dense, which lowers the sensitivity of mammography. Current study was also evaluated with a Computer Aided Detection (CAD) system. Bilateral breast implants are stable. There are benign appearing calcifications in the left breast. No significant masses, calcifications, or other findings are seen in either breast. There has been no significant interval change. IMPRESSION: BENIGN There is no mammographic evidence of malignancy. A 1 year screening mammogram is recommended. This exam was interpreted at Station ID: [id number]. NOTE: For mammograms, a report in lay terms will be sent to the patient. Approximately 15% of breast malignancies will not be visualized mammographically. In the management of a palpable breast mass, a negative mammogram must not discourage biopsy of a clinically suspicious lesion. Electronically Signed By: Christofer munoz/mildred:08/05/2021 09:28:44 letter sent: Normal Exam ACR BI-RADS Category 2: Benign Finding(s) 3342F
== END ==
PROVIDERS: PCP Physician Assistant; Referring Provider Physician Assistant; Visit Provider Physician Assistant
DX: Z12.31 Encounter for screening mammogram for malignant neoplasm of breast (principal)
CPT/HCPCS: 77063; 77067

== ENCOUNTER → 2021-12-16 14:32 | Outpatient (CLI) | payer OTHER, MEDICAID, SELFPAY | PROVIDERS: PCP Physician Assistant; Referring Provider Physician Assistant; Visit Provider Physician Assistant ==

== ENCOUNTER → 2022-01-21 08:44 | Outpatient (CLI) | payer OTHER, MEDICAID, SELFPAY ==
--- NOTE | 2022-01-21 08:51 | DI.RAD.S_ITS ---
PROCEDURE: XR CHEST 2V INDICATIONS: PNEUMONIA TECHNIQUE: 2 views of the chest were acquired. COMPARISON: [facility], CR, XR CHEST 1V, 03/23/2021, 16:18. FINDINGS: Surgical changes and devices: Mammoplasty implants are incidentally noted. Lungs and pleura: Lungs are clear. No pleural effusions or pneumothorax. Mediastinum: Mediastinal contours are normal. Heart size is normal. Bones and chest wall: No suspicious bony abnormalities. Soft tissues appear unremarkable. IMPRESSION: Clear lungs, without infiltrates. If there is clinical concern for a developing pulmonary process, a short-term followup chest series (with PA and lateral views, performed in deep inspiration) is suggested for further evaluation. Dictated by: Renaldo Wade M.D. on 01/21/2022 at 8:50 Approved by: Renaldo Wade M.D. on 01/21/2022 at 8:51
[2022-01-21 10:16] LABS: Add Manual Diff / Slide Review NO; Basophils Absolute Auto 0 /uL (0-100); Basophils Percent Auto 0.9 % (0-2); Eosinophils Absolute Auto 300 /uL (0-450); Hematocrit 37.2 % (36-46); Hemoglobin 12.4 g/dL (12.0-16.0); Lymphocytes Absolute Auto 1000 /uL (1100-4500); Lymphocytes Percent Auto 22.4 % (25-40); Mean Corpuscular HGB Conc 33.3 % (30-36); Mean Corpuscular Hemoglobin 29.6 PG (26-34); Mean Corpuscular Volume 88.9 fL (80-100); Monocytes Absolute Auto 400 /uL (0-900); Monocytes Percent Auto 9.9 % (3-14); Neutrophils Absolute Auto 2500 /uL (1500-7000); Neutrophils Percent Auto 58.8 % (50-75); Platelet Count 162 X10^3/uL (150-400); Red Blood Cell Count 4.18 X10^6/uL (4.0-5.2); Red Cell Distribution Width 13.7 % (11.6-14.8); White Blood Cell Count 4.3 X10^3/uL (4.5-11.0)
[2022-01-21 10:57] LABS: Alanine Aminotransferase 16 IU/L (<35); Albumin 4.3 g/dL (3.5-5.0); Albumin Globulin Ratio 1.7 (1.0-2.8); Alkaline Phosphatase 72 U/L (38-126); Aspartate Aminotransferase 25 IU/L (14-36); BUN Creatinine Ratio 19.7 (6-22); Bilirubin Total 0.5 mg/dL (0.2-1.3); Blood Urea Nitrogen 12 mg/dL (7-17); Calcium 9.5 mg/dL (8.4-10.2); Carbon Dioxide 24 mmol/L (22-32); Chloride 103 mmol/L (98-107); Cholesterol 187 mg/dL (140-199); Estimated Glomerular Filt Rate > 60 mL/min (>60); Globulin 2.6 g/dL (1.7-4.1); Glucose 81 mg/dL (70-100); HDL Cholesterol 59 mg/dL (40-60); HEMOLYSIS < 15 (0-50); LDL Cholesterol Calculated 108 mg/dL (<100); Potassium 3.9 mmol/L (3.4-5.1); Sodium 137 mmol/L (137-145); Total Protein 6.9 g/dL (6.3-8.2); Triglycerides 100 mg/dL (35-150)
[2022-01-21 11:20] LABS: TSH w/ Reflex to FT4 1.64 uIU/mL (0.47-4.68)
[2022-01-22 07:51] LABS: Triiodothyronine T3 Total 75 ng/dL (71-180)
== END ==
PROVIDERS: PCP Family Medicine; Referring Provider Family Medicine; Visit Provider Family Medicine
DX: J06.9 Acute upper respiratory infection, unspecified (principal); R05.1 Acute cough; E03.9 Hypothyroidism, unspecified; Z13.0 Encounter for screening for diseases of the blood and blood-forming organs and certain disorders involving the immune mechanism; Z13.220 Encounter for screening for lipoid disorders
CPT/HCPCS: 36415; 71046; 80053; 80061; 84443; 84480; 85025

== ENCOUNTER → 2022-04-17 07:55 | Outpatient (CLI) | payer OTHER, MEDICAID, SELFPAY ==
--- NOTE | 2022-04-17 07:57 | DI.US.S_ITS ---
PROCEDURE: US ABDOMEN LIMITED INDICATIONS: RIGHT UPPER QUADRANT PAIN TECHNIQUE: Real-time scanning was performed of the abdominal and retroperitoneal organs, with image documentation. COMPARISON: None. FINDINGS: Liver: Liver is normal in size and homogeneous in echotexture. Gallbladder: There is no gallstone. No gallbladder wall thickening or pericholecystic fluid. No sonographic Baird's sign. Biliary ducts: Intrahepatic bile ducts are non-dilated. Extrahepatic bile duct caliber measures 2.9 mm. Normal is 6-7 mm or less in diameter, or 10 mm or less post-cholecystectomy. Pancreas: Visualized portions of the pancreas are sonographically normal. Miscellaneous: No free abdominal fluid. IMPRESSION: Unremarkable ultrasound examination of right upper quadrant abdomen. Dictated by: Jassi Gross M.D. on 04/17/2022 at 9:10 Approved by: Jassi Gross M.D. on 04/17/2022 at 9:12
[2022-04-17 08:54] LABS: Add Manual Diff / Slide Review NO; Basophils Absolute Auto 0 /uL (0-100); Basophils Percent Auto 0.5 % (0-2); Eosinophils Absolute Auto 300 /uL (0-450); Eosinophils Percent Auto 4.9 % (2-4); Hemoglobin 12.4 g/dL (12.0-16.0); Lymphocytes Absolute Auto 1200 /uL (1100-4500); Lymphocytes Percent Auto 24.1 % (25-40); Mean Corpuscular HGB Conc 33.6 % (30-36); Mean Corpuscular Hemoglobin 29.6 PG (26-34); Mean Corpuscular Volume 87.9 fL (80-100); Monocytes Absolute Auto 400 /uL (0-900); Monocytes Percent Auto 7.9 % (3-14); Neutrophils Absolute Auto 3200 /uL (1500-7000); Neutrophils Percent Auto 62.6 % (50-75); Platelet Count 187 X10^3/uL (150-400); White Blood Cell Count 5.2 X10^3/uL (4.5-11.0)
[2022-04-17 09:11] LABS: Alanine Aminotransferase 18 IU/L (<35); Albumin 4.3 g/dL (3.5-5.0); Albumin Globulin Ratio 1.4 (1.0-2.8); Alkaline Phosphatase 64 U/L (38-126); Aspartate Aminotransferase 25 IU/L (14-36); BUN Creatinine Ratio 16.7 (6-22); Bilirubin Total 0.5 mg/dL (0.2-1.3); Blood Urea Nitrogen 11 mg/dL (7-17); C-Reactive Protein Quant < 0.5 mg/dL (<1.0); Calcium 9.4 mg/dL (8.4-10.2); Carbon Dioxide 27 mmol/L (22-32); Chloride 103 mmol/L (98-107); Estimated Glomerular Filt Rate > 60 mL/min (>60); Glucose 86 mg/dL (70-100); HEMOLYSIS < 15 (0-50); Lipase 97 U/L (23-300); Potassium 4.3 mmol/L (3.4-5.1); Sodium 138 mmol/L (137-145); Total Protein 7.3 g/dL (6.3-8.2)
[2022-04-17 10:17] LABS: Erythrocyte Sedimentation Rate 15 MM/HR (0-20)
== END ==
PROVIDERS: PCP Family Medicine; Referring Provider Family Medicine; Visit Provider Family Medicine
DX: R10.11 Right upper quadrant pain (principal); D72.10 Eosinophilia, unspecified
CPT/HCPCS: 36415; 76705; 80053; 83690; 85025; 85651; 86140

== ENCOUNTER 2022-04-25 08:43 | Emergency (ER) | payer OTHER, MEDICAID, SELFPAY ==
[2022-04-25] VITALS (7 sets, daily range): BP systolic 106–121; BP diastolic 55–72; PULSE 65–82; RESP 16–18; TEMP 36.6; O2SAT 99–100; BMI 20.1
[2022-04-25 09:22] LABS: Add Manual Diff / Slide Review NO; Basophils Absolute Auto 0 /uL (0-100); Basophils Percent Auto 0.9 % (0-2); Eosinophils Absolute Auto 300 /uL (0-450); Eosinophils Percent Auto 8.6 % (2-4); Hematocrit 38.7 % (36-46); Hemoglobin 13.1 g/dL (12.0-16.0); Lymphocytes Absolute Auto 1000 /uL (1100-4500); Lymphocytes Percent Auto 30.8 % (25-40); Mean Corpuscular HGB Conc 33.9 % (30-36); Mean Corpuscular Hemoglobin 29.4 PG (26-34); Mean Corpuscular Volume 86.7 fL (80-100); Monocytes Absolute Auto 400 /uL (0-900); Monocytes Percent Auto 12.2 % (3-14); Neutrophils Absolute Auto 1500 /uL (1500-7000); Neutrophils Percent Auto 47.5 % (50-75); Platelet Count 164 X10^3/uL (150-400); Red Blood Cell Count 4.47 X10^6/uL (4.0-5.2); Red Cell Distribution Width 13.6 % (11.6-14.8); White Blood Cell Count 3.2 X10^3/uL (4.5-11.0)
[2022-04-25 09:33] LABS: Alanine Aminotransferase 20 IU/L (<35); Albumin 4.3 g/dL (3.5-5.0); Albumin Globulin Ratio 1.4 (1.0-2.8); Alkaline Phosphatase 75 U/L (38-126); Aspartate Aminotransferase 28 IU/L (14-36); BUN Creatinine Ratio 20.8 (6-22); Bilirubin Total 0.2 mg/dL (0.2-1.3); Blood Urea Nitrogen 11 mg/dL (7-17); Calcium 9.2 mg/dL (8.4-10.2); Carbon Dioxide 27 mmol/L (22-32); Chloride 102 mmol/L (98-107); Estimated Glomerular Filt Rate > 60 mL/min (>60); Glucose 91 mg/dL (70-100); HEMOLYSIS 20 (0-50); Lipase 107 U/L (23-300); Potassium 4.1 mmol/L (3.4-5.1); Sodium 136 mmol/L (137-145); Total Protein 7.3 g/dL (6.3-8.2)
--- NOTE | 2022-04-25 10:14 | DI.CT.S_ITS ---
PROCEDURE: CT ABDOMEN PELVIS W CON INDICATIONS: llq pain on going TECHNIQUE: After the administration of intravenous contrast, axial sections acquired from the lung bases to the pubic symphysis. Coronal and sagittal reformats were performed. For radiation dose reduction, the following was used: automated exposure control, adjustment of mA and/or kV according to patient size. COMPARISON: None. FINDINGS: Image quality: Excellent. Lung bases: Lung bases are clear. Heart size is normal. Solid organs: Liver: The liver has no mass or intrahepatic biliary ductal dilatation. The portal vein and hepatic veins are patent. Biliary: The gallbladder has no gallstones, pericholecystic fluid, gallbladder wall thickening, or surrounding inflammatory change. Pancreas: The pancreas has no mass or ductal dilatation. There is no surrounding inflammation. Spleen: Normal size. There are no masses. Adrenals: No hypertrophy or nodules. Kidneys: No obstructive calculus or hydronephrosis. No solid mass. No cystic mass. Peritoneum and bowel: The distal esophagus and stomach are normal. The small bowel has a normal caliber and appearance. The terminal ileum is normal. The large bowel has a normal caliber and appearance. The appendix is normal. No free fluid or air. Nodes and vessels: No retroperitoneal or mesenteric adenopathy by size criteria. Aorta and inferior vena cava are normal in size. Miscellaneous: No abdominal wall mass or hernia. PELVIS: Genitourinary: The bladder has no wall thickening or mass. No bladder calcifications. There is reflux of contrast into both ovarian veins, worse on the left with reflux of contrast into the pelvis to the left ovary and with an increased caliber of the left ovarian vein measuring 7 mm. Bones: No suspicious bony lesions. No vertebral body compression fractures. IMPRESSION: 1. No acute abnormality. 2. Dilation and reflux of the left ovarian vein consistent with pelvic congestion syndrome. This patient may be a candidate for ovarian vein embolization. Consider referral to interventional radiology if clinically indicated. Dictated by: Johnny Lopez M.D. on 04/25/2022 at 10:19 Approved by: Johnny Lopez M.D. on 04/25/2022 at 10:29
--- NOTE | 2022-04-25 10:14 | ED.ABDPAIN ---
HPI - Abdominal Pain General Chief Complaint: Abdominal Pain Stated Complaint: Abd Pain, Lump Above Belly Button Time Seen by Provider: 04/25/22 09:03 Source: patient Mode of arrival: Ambulatory History of Present Illness HPI narrative: Patient is a 41-year-old female history of hypothyroid presenting today with ongoing abdominal discomfort. She reports having some right upper quadrant pain intermittently with some left lower quadrant pain. She would an outpatient ultrasound done on April 17 which was unremarkable of her gallbladder. He is not had any nausea or vomiting. She reports decrease in bowel habits she was every day bowel movement now she is about every other day. She denies any distention no fevers no painful frequent urination. Says the this has been ongoing for a couple of weeks she is being followed by her PCP however this morning she is having increasing pain lower quadrant felt like she may be palpated mass in her abdomen came to the ED Related Data Home Medications Medication Instructions Recorded Confirmed prenat.vits,janet,[id number] 1 tab PO DAILY 10/24/19 03/27/21 Previous Rx's Medication Instructions Recorded levothyroxine 50 mcg tablet 50 mcg PO DAILY #30 tabs 05/09/21 Allergies Allergy/AdvReac Type Severity Reaction Status Date / Time penicillin G Allergy Mild Rash Verified 07/25/20 14:28 Penicillins Allergy Unverified 03/23/21 16:07 Review of Systems Review of Systems ROS Unobtainable: All systems reviewed & are unremarkable except as noted in HPI and below Patient History Medical History AMA (advanced maternal age) multigravida 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 Grandfather Accident Grandmother CVA (cerebral vascular accident) Grandfather CVA (cerebral vascular accident) Hypertension Brother Hypothyroid Social History marital status: number of children: 1 household members: spouse and children lives independently: Yes pets and animals: No occupational status: employed (Self Employed - many losses with Covid : discussed [facility] support) current occupational exposures/hazards: No Previous occupational history: aerospace engineer special marce needs: No Smoking Status: Former smoker Tobacco: How many years used: 4 second hand exposure: No alcohol intake: former (pre- : occasional ) substance use type: does not use Smoking Status: Former smoker alcohol intake frequency: a few times a month Substance Use Type: does not use Exam Initial Vital Signs Initial Vital Signs: Vital Signs Pulse Rate 82 04/25/22 08:49 Pulse Oximetry 100 04/25/22 08:49 GENERAL: Alert pleasant 51-year-old female and in no acute distress. HEENT: Head atraumatic,EOMI, pupils reactive, face symmetric, moist mucous membranes CARDIOVASCULAR: Regular rate and rhythm without murmurs, rubs or gallops. RESPIRATORY: Breath sounds equal bilaterally, no wheezes rales or rhonchi. ABDOMEN: Soft, nontender. Normoactive bowel sounds all 4 quadrants. No guarding or rebound. No significant Baird sign no distention mild left lower quadrant pain without guarding or rebound : No CVA tenderness EXTREMITIES: Normal range of motion, no clubbing or edema. Neurovascularly intact NEUROLOGICAL: Alert and oriented x4.Normal gait and speech. SKIN: Warm, dry, no laceration, no petechiae, no rashes or lesions. Course Orders Ordered: ED Orders 04/25/22 09:15 Complete Blood Count AUTO DIFF Stat Comprehensive Metabolic Panel Stat Lipase Stat 04/25/22 10:14 CT abdomen pelvis w con Stat Vital Signs Vital signs: Vital Signs - 8 hr 04/25/22 08:51 04/25/22 08:49 04/25/22 09:00 Temperature 97.8 F Pulse Rate 78 82 75 Respiratory Rate 18 Blood Pressure 121/72 Pulse Oximetry 100 100 99 Oxygen Delivery Method Room Air 04/25/22 11:11 04/25/22 11:12 04/25/22 11:13 Temperature Pulse Rate 68 70 Respiratory Rate Blood Pressure 108/55 L Pulse Oximetry 100 99 Oxygen Delivery Method 04/25/22 11:13 04/25/22 12:23 Temperature Pulse Rate 65 76 Respiratory Rate 16 Blood Pressure 106/65 Pulse Oximetry 100 100 Oxygen Delivery Method Room Air [facility] Abdominal Pain Lab Data 04/25/22 09:15 04/25/22 09:15 Labs: Lab Results 04/25/22 04/25/22 Range/Units 09:15 09:15 WBC 3.2 L (4.5-11.0) X10^3/uL RBC 4.47 (4.0-5.2) X10^6/uL Hgb 13.1 (12.0-16.0) g/dL Hct 38.7 (36-46) % MCV 86.7 (80-100) fL MCH 29.4 (26-34) PG MCHC 33.9 (30-36) % RDW 13.6 (11.6-14.8) % Plt Count 164 (150-400) X10^3/uL Neut % (Auto) 47.5 L (50-75) % Lymph % (Auto) 30.8 (25-40) % Citrus % (Auto) 12.2 (3-14) % Eos % (Auto) 8.6 H (2-4) % Baso % (Auto) 0.9 (0-2) % Neut # (Auto) 1500 (8693-9119) /uL Lymph # (Auto) 1000 L (2300-2836) /uL Citrus # (Auto) 400 (0-900) /uL Eos # (Auto) 300 (0-450) /uL Baso # (Auto) 0 (0-100) /uL Sodium 136 L (137-145) mmol/L Potassium 4.1 (3.4-5.1) mmol/L Chloride 102 (98-107) mmol/L Carbon Dioxide 27 (22-32) mmol/L BUN 11 (7-17) mg/dL Creatinine 0.53 (0.52-1.04) mg/dL Estimated GFR > 60 (>60) mL/min BUN/Creatinine Ratio 20.8 (6-22) Glucose 91 (70-100) mg/dL Calcium 9.2 (8.4-10.2) mg/dL Total Bilirubin 0.2 (0.2-1.3) mg/dL AST 28 (14-36) IU/L ALT 20 (<35) IU/L Alkaline Phosphatase 75 (38-126) U/L Total Protein 7.3 (6.3-8.2) g/dL Albumin 4.3 (3.5-5.0) g/dL Globulin 3.0 (1.7-4.1) g/dL Albumin/Globulin Ratio 1.4 (1.0-2.8) Lipase 107 (23-300) U/L Point of care testing: Point of Care Testing Test Results Negative Urine Dip Bedside Urine Glucose Negative Bedside Urine Bilirubin - Negative Bedside Urine Ketone - Negative Urine Specific [place] 1.010 Bedside Urine Occult Blood - Negative Bedside Urine pH 6.5 Bedside Urine Protein - Negative Bedside Urine Urobilinogen - Negative Bedside Urine Nitrite - Negative Bedside Urine Leukocytes - Negative Esterase Imaging Data CT scan - abdomen/pelvis: Radiologist's Impression: PROCEDURE:? CT ABDOMEN PELVIS W CON ? INDICATIONS:? llq pain on going ? TECHNIQUE:? After the administration of intravenous contrast, axial sections acquired from the lung bases to the pubic symphysis.? Coronal and sagittal reformats were performed.? For radiation dose reduction, the following was used:? automated exposure control, adjustment of mA and/or kV according to patient size.? ? COMPARISON:? None. ? FINDINGS: Image quality:? Excellent.? ? Lung bases:? Lung bases are clear.? Heart size is normal. ? Solid organs:? Liver: The liver has no mass or intrahepatic biliary ductal dilatation. The portal vein and hepatic veins are patent. Biliary: The gallbladder has no gallstones, pericholecystic fluid, gallbladder wall thickening, or surrounding inflammatory change. Pancreas: The pancreas has no mass or ductal dilatation. There is no surrounding inflammation. Spleen: Normal size. There are no masses. Adrenals: No hypertrophy or nodules. Kidneys: No obstructive calculus or hydronephrosis.? No solid mass. No cystic mass. ? Peritoneum and bowel:? The distal esophagus and stomach are normal.? The small bowel has a normal caliber and appearance. The terminal ileum is normal. The large bowel has a normal caliber and appearance.? The appendix is normal. No free fluid or air.? ? Nodes and vessels:? No retroperitoneal or mesenteric adenopathy by size criteria.? Aorta and inferior vena cava are normal in size.? ? Miscellaneous:? No abdominal wall mass or hernia. ? PELVIS:? Genitourinary:? The bladder has no wall thickening or mass. No bladder calcifications.? There is reflux of contrast into both ovarian veins, worse on the left with reflux of contrast into the pelvis to the left ovary and with an increased caliber of the left ovarian vein measuring 7 mm. ? Bones:? No suspicious bony lesions.? No vertebral body compression fractures.? ? IMPRESSION: 1. No acute abnormality. 2. Dilation and reflux of the left ovarian vein consistent with pelvic congestion syndrome.? This patient may be a candidate for ovarian vein embolization.? Consider referral to interventional radiology if clinically indicated.? ? ? Dictated by: Johnny Lopez M.D. on 04/25/2022 at 10:19 ? ? [facility] Narrative Medical decision making narrative: Patient is a healthy 40 female who presents with ongoing abdominal discomfort. Initially shows some upper quadrant discomfort she would an outpatient ultrasound which was unremarkable today she thought she felt a mass in her parent umbilical region but also having left lower quadrant pain. Blood work is overall reassuring however WBC count is 3.2. No electrolyte abnormality or sign of ESTEE. She is afebrile normal vitals no concerning for severe infection. CT does show dilated left ovarian vein concerning for possible pelvic congestion. Actually spoke with Radiology about it no need for any further imaging recommended earring maker follow-up a can possibly embolized it causing her symptoms. At this time is unclear if that is causing her symptoms but possibly. She did have periumbilical pain which I can not explain today. This may also possibly have IBS recommend GI referral along with earring maker. Discharge Plan Departure Patient Disposition: Home Clinical Impression: Pelvic congestion Instructions: Chronic Pelvic Pain-Female Activity Restrictions/Additional Instructions: *You have been diagnosed with pelvic congestion *What to do: At this time blood work is overall reassuring. Your CT does show an enlarged left ovarian vein which might be related to pelvic congestion which may or may not be causing some of your issues. Please see your PCP and or OBGYN in regards to this. You may also need to see GI for ongoing intestinal issues *Continue to take medications as directed *Follow up with your primary care provider in 2-3 days or call [phone] *Return to ER if you should have increasing pain, persistent vomiting or any new, worsening or concerning symptoms Prescriptions: No Action prenat.vits,janet,[id number] Tablet 1 tab PO DAILY levothyroxine 50 mcg tablet 50 mcg PO DAILY Qty: 30 2RF Rx Instructions: Establish with a PCP to manage for refills. Referrals: Kelly Brand ARNP [Primary Care Provider] - Stand Alone Forms: Patient Portal/API
== END 2022-04-25 12:24 | disposition home or self-care (01) ==
PROVIDERS: Emergency Provider Emergency Medicine; PCP Family Medicine
DX: R10.2 Pelvic and perineal pain (principal)
CPT/HCPCS: 36415; 74177; 80053; 81003; 81025; 83690; 85025; 99283; 99284; Q9967

== ENCOUNTER → 2022-08-05 16:32 | Outpatient (CLI) | payer OTHER, MEDICAID, SELFPAY ==
[2022-08-05 17:28] LABS: Add Manual Diff / Slide Review NO; Basophils Absolute Auto 0 /uL (0-100); Basophils Percent Auto 0.6 % (0-2); Eosinophils Absolute Auto 400 /uL (0-450); Eosinophils Percent Auto 7.8 % (2-4); Hematocrit 38.3 % (36-46); Hemoglobin 13.1 g/dL (12.0-16.0); Lymphocytes Absolute Auto 1700 /uL (1100-4500); Lymphocytes Percent Auto 30.2 % (25-40); Mean Corpuscular HGB Conc 34.1 % (30-36); Mean Corpuscular Hemoglobin 29.8 PG (26-34); Mean Corpuscular Volume 87.3 fL (80-100); Monocytes Absolute Auto 400 /uL (0-900); Monocytes Percent Auto 6.7 % (3-14); Neutrophils Absolute Auto 3100 /uL (1500-7000); Neutrophils Percent Auto 54.7 % (50-75); Platelet Count 196 X10^3/uL (150-400); Red Blood Cell Count 4.39 X10^6/uL (4.0-5.2); Red Cell Distribution Width 13.1 % (11.6-14.8); White Blood Cell Count 5.6 X10^3/uL (4.5-11.0)
== END ==
PROVIDERS: PCP Nurse Practitioner Family; Referring Provider Nurse Practitioner Family; Visit Provider Nurse Practitioner Family
DX: E03.9 Hypothyroidism, unspecified (principal); D72.19 Other eosinophilia
CPT/HCPCS: 36415; 84443; 85025

== ENCOUNTER → 2022-08-17 12:59 | Outpatient (CLI) | payer OTHER, MEDICAID, SELFPAY ==
--- NOTE | 2022-08-17 | DI.MG.S_ITS ---
BILATERAL DIGITAL SCREENING MAMMOGRAM 3D/2D WITH CAD WITH AUGMENTATION: 08/17/2022 CLINICAL: Routine screening. Comparison is made to exams dated: 08/05/2021 mammogram, 11/28/2018 mammogram - [facility], 08/18/2018 mammogram - [facility], and 11/29/2015 mammogram - [facility]. Both breasts are extremely dense, which lowers the sensitivity of mammography (category d />75% glandular tissue). Current study was also evaluated with a Computer Aided Detection (CAD) system. Bilateral breast implants are stable. There are benign calcifications in the left breast. No significant masses, calcifications, or other findings are seen in either breast. There has been no significant interval change. IMPRESSION: BENIGN There is no mammographic evidence of malignancy. A 1 year screening mammogram is recommended. Based on the Tyrer Cuzick model (a risk assessment model) the patient's lifetime risk is 18.0% and her 10 year risk is 2.8%. According to the ACR, ACS, and NCCN guidelines, an annual breast MRI exam along with mammogram is recommended if the patient's lifetime risk is 20% or greater. This exam was interpreted at Station ID: [id number]. NOTE: For mammograms, a report in lay terms will be sent to the patient. Approximately 15% of breast malignancies will not be visualized mammographically. In the management of a palpable breast mass, a negative mammogram must not discourage biopsy of a clinically suspicious lesion. Electronically Signed By: Manish peraza/mildred:08/17/2022 13:42:45 letter sent: Normal Exam ACR BI-RADS Category 2: Benign Finding(s) [id number]
== END ==
PROVIDERS: PCP Nurse Practitioner Family; Referring Provider Family Medicine; Visit Provider Family Medicine
DX: Z12.31 Encounter for screening mammogram for malignant neoplasm of breast (principal)
CPT/HCPCS: 77063; 77067